=== PATIENT | female | born 1990 | race Caucasian/White ===

== ENCOUNTER → 2020-08-06 13:16 | Outpatient (BNVA) | payer MEDICAID, SELFPAY | PROVIDERS: PCP Internal Medicine; Visit Provider Urology | DX: N20.0 Calculus of kidney (principal) | CPT/HCPCS: 99212 ==

== ENCOUNTER 2020-12-23 16:36 | Outpatient (REF) | payer MEDICAID, SELFPAY ==
--- NOTE | ~2020-12-23 | US_ITS ---
EXAMINATION: US RETROPERITONEAL LIMITED (RENAL ONLY) CLINICAL INFORMATION: Calculus of kidney. COMPARISON: Ultrasound renal cyst only 06/18/2020. Ultrasound pelvis 02/16/2012. X-ray KUB 05/29/2020. TECHNIQUE: Real-time imaging of the kidneys. FINDINGS: RIGHT KIDNEY: 12.1 x 3.7 x 4.9 cm (SAG x AP x TRV). The kidney is normal in size, contour, and echogenicity. Renal cortical thickness is normal. No calculi or focal parenchymal lesions. No hydronephrosis. LEFT KIDNEY: 12.4 x 5.7 x 4.4 cm (SAG x AP x TRV). The kidney is normal in size, contour, and echogenicity. Renal cortical thickness is normal. There is a 4 mm stone in the midpole. No focal parenchymal lesions or hydronephrosis. US/US renal BI IMPRESSION: Normal right kidney. Small left renal stone.
== END 2020-12-23 16:37 | disposition home or self-care (01) ==
LOC: HO.US 16:36
PROVIDERS: PCP Internal Medicine; Visit Provider Urology
DX: N20.0 Calculus of kidney (principal)
CPT/HCPCS: 76775

== ENCOUNTER → 2020-12-31 11:49 | Outpatient (BNVA) | payer MEDICAID, SELFPAY | PROVIDERS: Visit Provider Urology ==

== ENCOUNTER 2021-02-28 15:59 | Outpatient (REF) | payer MEDICAID, SELFPAY ==
[2021-03-07 15:11] LABS: URO-Calcium 24 Hr Urine 46 mg/day (<250.0); URO-Calcium Oxalat 24 Hr Urine 2.45 (<2.00); URO-Citric Acid 24 Hr Urine 558 mg/day (>320); URO-Creatinine 24 Hr Urine 824 mg/day (600-1800); URO-Magnesium 24 Hr Urine 54 mg/day (>60.0); URO-Oxalate 24 Hr Urine 38 mg/day (<45); URO-Phosphorus 24 Hr Urine 337 mg/day (<1100); URO-Potassium 24 Hr Urine 32 mEq/day (19-135); URO-Sodium 24 Hr Urine 29 mEq/day (<200); URO-Sodium Urate 24 Hr Urine 1.62 (<2.00); URO-Sulfate 24 Hr Urine 7 mmol/day (<30); URO-Total Volume 0.66 L/day (>2.00); URO-Uric Acid 24 Hr Urine 354 mg/day (<700); URO-pH 24 Hr Urine 5.9 (5.5-7.0)
== END 2021-02-28 16:00 | disposition home or self-care (01) ==
LOC: HO.LNP 15:59
PROVIDERS: Visit Provider Urology
DX: N20.0 Calculus of kidney (principal)
CPT/HCPCS: 82340; 82507; 82570; 83735; 83945; 83986; 84105; 84133; 84300; 84392; 84560

== ENCOUNTER → 2021-03-13 11:09 | Outpatient (BNVA) | payer MEDICAID, SELFPAY | PROVIDERS: Visit Provider Urology ==

== ENCOUNTER 2022-01-13 16:31 | Outpatient (REF) | payer MEDICAID, SELFPAY ==
--- NOTE | ~2022-01-13 | US_ITS ---
EXAMINATION: US RETROPERITONEAL LIMITED (RENAL ONLY) CLINICAL INFORMATION: Calculus of kidney. COMPARISON: Renal ultrasound 12/23/2020 and 06/18/2020. X-ray abdomen KUB 05/29/2020. TECHNIQUE: Real-time imaging of the kidneys. FINDINGS: RIGHT KIDNEY: 11.5 x 3.8 x 4.3 cm (SAG x AP x TRV). The kidney is normal in size and contour. The renal pyramids appear echogenic questionable for medullary nephrocalcinosis. Renal cortical thickness is normal. No calculi or focal parenchymal lesions. No hydronephrosis. LEFT KIDNEY: 10.2 x 4.1 x 6.1 cm (SAG x AP x TRV). The kidney is normal in size and contour. The renal pyramids appear echogenic questionable for medullary nephrocalcinosis. Renal cortical thickness is normal. There is a 4 mm stone in the midpole. No focal parenchymal lesions or hydronephrosis. US/US renal BI IMPRESSION: Echogenic renal pyramids questionable for medullary nephrocalcinosis. Left renal stone.
== END 2022-01-13 16:32 | disposition home or self-care (01) ==
LOC: HO.US 16:31
PROVIDERS: PCP Internal Medicine; Visit Provider Urology
DX: N20.0 Calculus of kidney (principal)
CPT/HCPCS: 76775

== ENCOUNTER → 2022-02-23 13:12 | Outpatient (BNVA) | payer MEDICAID, SELFPAY | PROVIDERS: PCP Internal Medicine | DX: Z13.89 Encounter for screening for other disorder (principal) ==